=== PATIENT | male | born 1985 | race Caucasian/White ===

== ENCOUNTER 2020-10-17 13:54 | Emergency (ER) | payer OTHER, SELFPAY ==
--- NOTE | ~2020-10-17 | CT_ITS ---
EXAMINATION: CT brain wo con, CT cervical spine wo con EXAM DATE: 10/17/2020 14:48 INDICATION: Fall from 4ft, head injury. TECHNIQUE: Spiral CT of the head was performed without contrast. Axial, coronal and sagittal images were reviewed. Spiral CT of the cervical spine was performed without contrast. Axial images were rev iewed. Coronal and sagittal reformatted images were also reviewed. The dose-length product (DLP) fo r this examination was 681.00 (accession [id number]), 232.55 (accession [id number]) mGy-cm. The exposure was tailored according to patient size, and iterative reconstruction (ASIR) was used as additional dose reduction technique. There is no prior study for comparison. FINDINGS: HEAD CT: There is no acute intraparenchymal hemorrhage. No evidence of intraparenchymal brain mass l esion. No evidence of acute infarction. There is no mass effect or midline shift. There is no obstru ctive hydrocephalus suspected. There are no extra-axial collections. There are no acute calvarial f ractures. The orbits are unremarkable. Probable small posterior vertex scalp contusion. The visuali zed sinuses and mastoid air cells are well aerated. CERVICAL CT: There is no evidence of acute cervical fracture. The odontoid process is intact. Pre-d ens space is normal. Prevertebral soft tissue is normal. There are no soft tissue abnormalities dave ntified. There is no disc space widening or traumatic vertebral body subluxation suspected. Vertebr al body and disc heights are well-maintained. A detailed level by level evaluation of spondylosis c an be added as addendum if requested. IMPRESSION: 1. No acute intracranial findings or cervical fracture. 2. Probable small posterior scalp contusion. Reviewed, dictated and finalized at location A. IMPRESSION: 1. No acute intracranial findings or cervical fracture. 2. Probable small posterior scalp contusion.
[2020-10-17 14:06] VITALS: BP 121/79; PULSE 85; RESP 16; TEMP 36.8; O2SAT 100
[2020-10-17] MEDS: LIDOCAINE, EPINEPHRINE, TETRACAINE VISCOUS SOLN 3 ML TOPICAL (14:28)
[2020-10-17] MEDS: TETANUS,DIPHTHERIA,AC PERTUSSIS ADULT (0.5 ML) BOOSTRIX IM (14:28)
--- NOTE | 2020-10-17 15:52 | ED.GENADULT ---
HPI - General Adult General Chief complaint: Fall Stated complaint: fall from 4 feet, head lac Time Seen by Provider: 10/17/20 14:05 Source: patient and RN notes reviewed Mode of arrival: ambulatory Limitations: no limitations History of Present Illness HPI narrative: Patient is a 34-year-old male who presents after falling and striking his head today just prior to arrival patient presents noting mild headache denies other injuries or complaints on arrival he is in no distress in the room patient notes his tetanus is not up-to-date patient states that he has mild neck pain as well. Denies any recent illness or other complaints Related Data Allergies Allergy/AdvReac Type Severity Reaction Status Date / Time No Known Allergies Allergy Verified 10/17/20 14:27 Review of Systems Review of Systems: All systems reviewed & are unremarkable except as noted in HPI and below PMFSH Social History Social History (Updated 10/17/20 @ 15:54 by Mike Green PA-C) Smoking status: Current every day smoker Exam Narrative: Exam Narrative: GENERAL: Well-appearing, well-nourished, and in no acute distress. HEAD: Normocephalic, 1 cm posterior scalp laceration EYES: PERRLA and EOMI. ENT: Nares clear, no rhinorrhea or epistaxis. Mucous membranes moist. NECK: Supple. No adenopathy or masses. EXTREMITIES: Normal range of motion. No edema. Midline cervical and paraspinal tenderness SKIN: Warm, dry, no rash. NEURO: No focal deficits. Alert and oriented x3. Cranial nerves II through XII grossly intact. Normal speech and gait PSYCH: Normal mood and affect. Course Course Emergency Course: Patient evaluated in the emergency department no concerning findings had darion placed in the scalp Vital Signs Vital signs: Vital Signs Temperature 98.3 F 10/17/20 14:06 Pulse Rate 85 10/17/20 14:06 Respiratory Rate 16 10/17/20 14:06 Blood Pressure 121/79 10/17/20 14:06 Pulse Oximetry 100 10/17/20 14:06 Temperature 98.3 F 10/17/20 14:06 Pulse Rate 85 10/17/20 14:06 Respiratory Rate 16 10/17/20 14:06 Blood Pressure 121/79 10/17/20 14:06 Pulse Oximetry 100 10/17/20 14:06 Procedures Laceration Laceration 1: Date: 10/17/20 Time: 15:57 Site: scalp Size (cm): 1 Description: linear Depth: simple, single layer Local Anesthetic: other anesthetic Pre-repair: wound explored and irrigated ====== Skin Level ====== Skin layer closed with: darion Number of sutures: 2 ====== Subcutaneous Layer ====== ====== Muscle Layer ====== ====== Tendon Layer ====== Medical Decision Making MDM Narrative Medical decision making narrative: Patients injury or pain is consistent with musculoskeletal etiology. No signs of neurological or vascular compromise on exam. Compartments and tisues are soft without signs of compartment syndrome. Pain is felt appropriate for further evaluation on an outpatient basis. Darion placed on the scalp Vital Signs Vital Signs: Vital Signs Temperature 98.3 F 10/17/20 14:06 Pulse Rate 85 10/17/20 14:06 Respiratory Rate 16 10/17/20 14:06 Blood Pressure 121/79 10/17/20 14:06 Pulse Oximetry 100 10/17/20 14:06 Temperature 98.3 F 10/17/20 14:06 Pulse Rate 85 10/17/20 14:06 Respiratory Rate 16 10/17/20 14:06 Blood Pressure 121/79 10/17/20 14:06 Pulse Oximetry 100 10/17/20 14:06 Discharge Plan Discharge Clinical Impression: Head injury, Cervical strain, Laceration of scalp Patient Disposition: Home, Self-Care Condition: Stable Instructions: Antibiotic Form, Head Injury (ED) Additional Instructions: Follow up with your primary care doctor in 5-7 days for re-evaluation. Go to ER for worsening pain, vision changes, nausea/vomiting, fever/chills, weakness, chest pain, shortness of breath, numbness/tingling, slurred speech, difficulty walking, change in mental st
== END 2020-10-17 16:06 | disposition home or self-care (01) ==
PROVIDERS: Emergency Provider Emergency Medicine
DX: S09.90XA Unspecified injury of head, initial encounter (principal); S01.02XA Laceration with foreign body of scalp, initial encounter; S16.1XXA Strain of muscle, fascia and tendon at neck level, initial encounter; F17.210 Nicotine dependence, cigarettes, uncomplicated; W17.89XA Other fall from one level to another, initial encounter; Z23 Encounter for immunization
CPT/HCPCS: 12001; 70450; 72125; 90471; 90715; 99284; L0140

== ENCOUNTER 2020-12-30 15:08 | Emergency (ER) | payer OTHER, SELFPAY ==
[2020-12-30 15:32] VITALS: BP 130/110; PULSE 101; RESP 18; TEMP 36.7; O2SAT 100
--- NOTE | 2020-12-30 16:26 | ED.GENADULT ---
HPI - General Adult General Chief complaint: Skin/Abscess/Foreign Body Stated complaint: skin issues Source: patient Mode of arrival: ambulatory Limitations: no limitations History of Present Illness HPI narrative: Patient presents for evaluation of wounds to the face and left lower extremity. He states he noticed symptoms yesterday. He uses methamphetamine and states that he saw some dust popping out of the wounds. No fever, chills, nausea, vomiting. He is not diabetic. He has some mild pain associated with the wounds but denies any other complaints. Related Data Allergies Allergy/AdvReac Type Severity Reaction Status Date / Time No Known Allergies Allergy Verified 12/30/20 15:45 Review of Systems Review of Systems: CONSTITUTIONAL: Denies fever, chills, or sweats. EYES: Denies visual changes, redness, or discharge. ENT: Denies rhinorrhea, congestion, sore throat, or otalgia. CARDIOVASCULAR: Denies chest pain, palpitations, or edema. RESPIRATORY: Denies cough or dyspnea. GASTROINTESTINAL: Denies abdominal pain, nausea, vomiting, or diarrhea. GENITOURINARY: Denies dysuria or hematuria. SKIN: Reports wound to face and LLE MUSCULOSKELETAL: Denies back pain, joint pain, or myalgia. NEUROLOGIC: Denies headache, numbness, dizziness, or weakness. PSYCHIATRIC: Denies anxiety or depression. [facility] Past Medical History Medical History Tobacco use Surgical History Surgical History No pertinent past surgical history Family History Family History Mother No significant past medical history Social History Social History (Updated 12/30/20 @ 16:29 by Slade Comer, [facility], ) Smoking packs per day: 1 Smoking cigarettes per day: 20.0 Smoking status: Current every day smoker Substance use: current Substance use type: amphetamines Living arrangements: with friend(s) Gender identity (if verbalized by the patient): Male Spiritual care concerns: No Exam Narrative: GENERAL: Well-appearing, well-nourished, and in no acute distress. HEAD: Normocephalic, atraumatic. EYES: PERRLA and EOMI. ENT: Nares clear, no rhinorrhea or epistaxis. Mucous membranes moist. Oropharynx without tonsillar hypertrophy exudate or other lesions. Bilateral TMs pearly dickey nonbulging NECK: Supple. No adenopathy or masses. No carotid bruits or JVD CHEST: Clear to auscultation. No respiratory distress. No wheezes rales or rhonchi HEART: Regular rate and rhythm. No murmur heard. Normal peripheral pulses. ABDOMEN: Soft, nontender, nondistended, normal active bowel sounds. EXTREMITIES: Normal range of motion. No edema. SKIN: 1.5 cm linear scabbed lesion beneath the chin. There is a superficial ulcerative lesion between both eyebrows that is approximately 1 cm in size with scant amount of serous drainage. There is approximately 4 mm pustule noted to the left inner thigh. Warm, dry, no rash. NEURO: No focal deficits. Alert and oriented x3. PSYCH: Normal mood and affect. Course Course Emergency Course: This is a 35-year-old male who presented with complaints of wounds to the face and left lower extremity. On physical exam he has scabbed lesion, a pustule and an ulcerative lesion. These are consistent with his methamphetamine use. Wound culture was obtained from the lesion between his eyebrows. We will discharge him with Bactrim and Keflex. Advised not to use illicit drugs. Should follow-up outpatient for further evaluation treatment return for worsening symptoms. Patient agreed with plan of care. Vital Signs Vital signs: Vital Signs Temperature 36.7 C 12/30/20 15:32 Pulse Rate 101 H 12/30/20 15:32 Respiratory Rate 18 12/30/20 15:32 Blood Pressure 130/110 H 12/30/20 15:32 Pulse Oximetry 100 12/30/20 15:32 Temperature 36.7 C 12/30/20 15:32 Pulse Rate 101 H 12/30/20 15:32 Respiratory
== END 2020-12-30 16:37 | disposition home or self-care (01) ==
PROVIDERS: Emergency Provider Nurse Practitioner
DX: L08.9 Local infection of the skin and subcutaneous tissue, unspecified (principal); F17.210 Nicotine dependence, cigarettes, uncomplicated
CPT/HCPCS: 87070; 87147; 87186; 87205; 99213; G0463

== ENCOUNTER 2021-03-16 14:32 | Emergency (ER) | payer OTHER, SELFPAY ==
[2021-03-16 14:45] VITALS: BP 118/74; PULSE 101; RESP 16; TEMP 37; O2SAT 99
[2021-03-16 15:00] VITALS: BP 118/74; PULSE 101; RESP 16; TEMP 37; O2SAT 99
--- NOTE | 2021-03-16 15:06 | ED.GENADULT ---
HPI - General Adult General Chief complaint: Skin/Abscess/Foreign Body Stated complaint: skin infection Time Seen by Provider: 03/16/21 15:25 Source: patient Mode of arrival: ambulatory Limitations: no limitations History of Present Illness HPI narrative: 35-year-old male patient presents to the [facility] with complaints of wounds to forehead bilateral arms and bilateral legs that started about a week ago. Patient was seen here in December for the same type of rash and they cultured it at that time which came back to be positive for MRSA. Patient did admit that he does use methamphetamine and last time he used was about a week ago. Denies fevers, body aches or chills Related Data Allergies Allergy/AdvReac Type Severity Reaction Status Date / Time No Known Allergies Allergy Verified 03/16/21 14:58 Review of Systems Review of Systems: CONSTITUTIONAL: Denies fever, chills, or sweats. EYES: Denies visual changes, redness, or discharge. ENT: Denies rhinorrhea, congestion, sore throat, or otalgia. CARDIOVASCULAR: Denies chest pain, palpitations, or edema. RESPIRATORY: Denies cough or dyspnea. GASTROINTESTINAL: Denies abdominal pain, nausea, vomiting, or diarrhea. GENITOURINARY: Denies dysuria or hematuria. SKIN: Denies rash or itching. Positive wound/rash to face, neck bilateral upper extremities and bilateral lower extremities MUSCULOSKELETAL: Denies back pain, joint pain, or myalgia. NEUROLOGIC: Denies headache, numbness, or weakness. PSYCHIATRIC: Denies anxiety or depression. [facility] Past Medical History Medical History Hx MRSA infection Methamphetamine use Tobacco use Surgical History Surgical History No pertinent past surgical history Family History Family History Mother No significant past medical history Social History Social History Smoking packs per day: 1 Smoking cigarettes per day: 20.0 Smoking status: Current every day smoker Substance use: current Substance use type: amphetamines Gender identity (if verbalized by the patient): Male Spiritual care concerns: No Comments At the time of my signature I agree with nursing past medical history, surgical, social, and family history. There is no relevant family history pertinent to the presenting complaint. Exam Narrative: GENERAL: Well-appearing, well-nourished, and in no acute distress. HEAD: Normocephalic, atraumatic. EYES: PERRLA and EOMI. ENT: Nares clear, no rhinorrhea or epistaxis. Mucous membranes moist. NECK: Supple. No lymphadenopathy CHEST: Clear to auscultation. No respiratory distress. HEART: Regular rate and rhythm. No murmur heard. Normal peripheral pulses. ABDOMEN: Soft, nontender, nondistended, normal active bowel sounds. EXTREMITIES: Normal range of motion. No edema. SKIN: Warm, dry, no rash. Patient has slightly draining wound noted to the forehead between the eyes, a red rash area noted to the neck and multiple irregular areas noted to bilateral upper and lower extremities that appear to be scabbed over. NEURO: No focal deficits. Alert and oriented x3. Course Vital Signs Vital signs: Vital Signs Temperature 37.0 C 03/16/21 14:45 Pulse Rate 101 H 03/16/21 14:45 Respiratory Rate 16 03/16/21 14:45 Blood Pressure 118/74 03/16/21 14:45 Pulse Oximetry 99 03/16/21 14:45 Temperature 37.0 C 03/16/21 15:00 Pulse Rate 101 H 03/16/21 15:00 Respiratory Rate 16 03/16/21 15:00 Blood Pressure 118/74 03/16/21 15:00 Pulse Oximetry 99 03/16/21 15:00 Vital signs reviewed Medical Decision Making Differential Diagnosis Differential Diagnosis: Differential diagnosis: Contact dermatitis, poison franklin, poison sumac, psoriasis, eczema, allergic reaction, drug reaction, scabies, tinea syphilis, lung disease, viral exanthema, pityriasis, er
== END 2021-03-16 15:27 | disposition home or self-care (01) ==
PROVIDERS: Emergency Provider Nurse Practitioner Family
DX: L08.9 Local infection of the skin and subcutaneous tissue, unspecified (principal); B96.89 Other specified bacterial agents as the cause of diseases classified elsewhere; F17.210 Nicotine dependence, cigarettes, uncomplicated
CPT/HCPCS: 99213; G0463